=== PATIENT | female | born 2000 | race Caucasian/White ===

== ENCOUNTER 2020-08-05 20:26 | Emergency (ER) | payer OTHER ==
[~2020-08-05] VITALS: Ht 157.5 cm; Wt 44.5 kg
[2020-08-05] MEDS ORDERED: TUSICOF CAPLET1 EACH PO (22:44)
[2020-08-05] MEDS ORDERED: ZITHROMAX TRI-500 MG PO (22:44)
== END 2020-08-05 23:36 | disposition home or self-care (01) ==
LOC: ER 20:26 → EMR PED 20:26
DX: J20.9 Acute bronchitis, unspecified (principal); Z11.52 Encounter for screening for COVID-19

== ENCOUNTER 2020-10-12 17:31 | Emergency (ER) | payer OTHER ==
[~2020-10-12] VITALS: Ht 157.5 cm; Wt 46.3 kg
[~2020-10-12 17:31] MED LIST: TUSICOF CAPLET1 EACH PO; ZITHROMAX TRI-500 MG PO
== END 2020-10-12 20:07 | disposition home or self-care (01) ==
LOC: EMR PED 17:31
DX: U07.1 COVID-19 (principal); B34.9 Viral infection, unspecified; R05 Cough; R51.9 Headache, unspecified; R50.9 Fever, unspecified